=== PATIENT | male | born 1995 | race African-American/Black ===

== ENCOUNTER 2019-05-30 15:26 | Emergency (ER) | payer OTHER ==
[~2019-05-30] VITALS: Ht 172.7 cm; Wt 98.7 kg
--- NOTE | 2019-05-30 16:12 | REP ---
LEFT KNEE, FIVE VIEWS: KNEE: There is no evidence of an acute fracture, dislocation or intrinsic bone disease. IMPRESSION: No fracture or dislocation. Electronically Signed by Joaquín Jaimes MD 05/30/2019 04:57 P
[2019-05-30 16:25] LABS: BASO % 0.8 % (0.0-1.0); EOS # 0.1 10^3/uL (0.0-0.5); EOS % 1.4 % (0.0-3.0); HEMATOCRIT 44.1 % (42.0-52.0); HEMOGLOBIN 14.7 g/dl (13.5-17.5); LYMPH # 2.4 10^3/uL (1.5-5.0); LYMPH % 48.4 % (24.0-44.0); MEAN CORPUSCULAR HEMOGLOBIN 28.2 pg (27.0-33.0); MEAN CORPUSCULAR HGB CONC 33.3 g/dl (32.0-36.5); MEAN CORPUSCULAR VOLUME 84.6 fl (80.0-96.0); MONO # 0.5 10^3/uL (0.0-0.8); MONO % 10.1 % (0.0-5.0); NEUTROPHILS # 1.9 10^3/uL (1.5-8.5); NEUTROPHILS % 39.1 % (36.0-66.0); PLATELET COUNT, AUTOMATED 275 10^3/uL (150-450); RED BLOOD COUNT 5.21 10^6/uL (4.30-6.10); WHITE BLOOD COUNT 4.9 10^3/uL (4.0-10.0)
[2019-05-30 16:45] LABS: ERYTHROCYTE SEDIMENTATION RATE 10 mm/hr (0-15)
[2019-05-30 18:03] VITALS: BP 136/65
== END 2019-05-30 18:16 | disposition home or self-care (01) ==
LOC: M ED 15:26
DX: M25.562 Pain in left knee (principal); F17.210 Nicotine dependence, cigarettes, uncomplicated

== ENCOUNTER 2020-10-07 19:29 | Emergency (ER) | payer OTHER ==
[~2020-10-07] VITALS: Ht 172.7 cm; Wt 110.0 kg
[2020-10-07] MEDS ORDERED: NS 1,000 ML IV ONE (20:00)
[2020-10-07] MEDS ORDERED: ONDANSETRON 4MG/2ML VIAL IV ONE (20:00)
[2020-10-07] MEDS ORDERED: PANTOPRAZOLE 40MG VIAL (C9113 PER 1) IV ONE (20:00)
[2020-10-07] MEDS ORDERED: GI COCKTAIL 50ML BTL(HYOSCYAMINE/MAALOX/LIDOCAINE VISCOUS)(1:3:1) PO ONE (20:00)
[2020-10-07 20:13] LABS: BASO % 0.5 % (0.0-1.0); EOS % 0.5 % (0.0-3.0); HEMATOCRIT 45.4 % (42.0-52.0); HEMOGLOBIN 15.2 g/dl (13.5-17.5); LYMPH # 2.8 10^3/uL (1.5-5.0); LYMPH % 43.1 % (24.0-44.0); MEAN CORPUSCULAR HEMOGLOBIN 28.2 pg (27.0-33.0); MEAN CORPUSCULAR HGB CONC 33.5 g/dl (32.0-36.5); MEAN CORPUSCULAR VOLUME 84.2 fl (80.0-96.0); MONO # 0.6 10^3/uL (0.0-0.8); MONO % 9.1 % (2.0-8.0); NEUTROPHILS % 46.5 % (36.0-66.0); PLATELET COUNT, AUTOMATED 313 10^3/uL (150-450); RED BLOOD COUNT 5.39 10^6/uL (4.30-6.10); WHITE BLOOD COUNT 6.5 10^3/uL (4.0-10.0)
[2020-10-07 20:44] LABS: ALBUMIN 4.3 GM/DL (3.2-5.2); BILIRUBIN,DIRECT 0.2 MG/DL (0.0-0.2); BILIRUBIN,TOTAL 0.6 MG/DL (0.2-1.0); TOTAL PROTEIN 8.7 GM/DL (6.4-8.2)
[2020-10-07] MEDS ORDERED: CARA1TAB6 PO (21:05)
[2020-10-07] MEDS ORDERED: PROTPAK PO (21:05)
[2020-10-07] MEDS ORDERED: ONDA4TAB6 PO (21:05)
[2020-10-07 21:23] VITALS: BP 141/74
== END 2020-10-07 21:42 | disposition home or self-care (01) ==
LOC: M ED 19:29
DX: K21.9 Gastro-esophageal reflux disease without esophagitis (principal); R19.7 Diarrhea, unspecified; R11.0 Nausea; F41.9 Anxiety disorder, unspecified; Z79.899 Other long term (current) drug therapy
CPT/HCPCS: 80047; 80076; 81001; 83605; 83690; 85025; 87040; 96361; 96374; 96375; 99284; C9113; J2405

== ENCOUNTER 2020-12-13 17:12 | Emergency (ER) | payer OTHER ==
[~2020-12-13] VITALS: Ht 172.7 cm; Wt 102.8 kg
[~2020-12-13 17:12] MED LIST: CARA1TAB6 PO; ONDA4TAB6 PO; PROTPAK PO
[2020-12-13] MEDS ORDERED: NAPR-837 PO (20:18)
--- NOTE | 2020-12-13 20:40 | REPVR ---
PROCEDURE INFORMATION: Exam: XR Chest Exam date and time: 12/13/2020 7:59 PM Age: 25 years old Clinical indication: Other: Central chest pain TECHNIQUE: Imaging protocol: XR of the chest. Views: 2 views. COMPARISON: No relevant prior studies available. FINDINGS: Lungs: Unremarkable. No consolidation. Pleural spaces: Unremarkable. No pleural effusion. No pneumothorax. Heart/Mediastinum: Unremarkable. No cardiomegaly. Bones/joints: Unremarkable. IMPRESSION: No acute findings. Electronically signed by: Valdez Mckay On 12/13/2020 20:39:49 PM
[2020-12-13 20:43] VITALS: BP 133/72
--- NOTE | 2020-12-14 13:25 | ECGEPIP ---
[facility] - ED Test Date: 2020-12-13 Pat Name: CUCO LOVE Department: Room: - Gender: Male [employer] Program[employer] Analyst: : 1995 Requested By: Kylee Pereira Order Number: [id number] Reading MD: Kylee Pereira Measurements Intervals [place] Rate: 99 P: 59 OK: 162 QRS: 68 QRSD: 90 T: 63 QT: 328 QTc: 420 Interpretive Statements Normal sinus rhythm No prior Electronically Signed on 12-14-2020 13:24:52 EDT by Kylee Pereira
== END 2020-12-13 20:46 | disposition home or self-care (01) ==
LOC: M ED 17:12
DX: M94.0 Chondrocostal junction syndrome [Tietze] (principal); G47.30 Sleep apnea, unspecified; K21.9 Gastro-esophageal reflux disease without esophagitis; F17.200 Nicotine dependence, unspecified, uncomplicated; Z79.899 Other long term (current) drug therapy

== ENCOUNTER 2021-05-01 11:06 | Emergency (ER) | payer OTHER ==
[~2021-05-01] VITALS: Ht 172.7 cm; Wt 96.9 kg
[~2021-05-01 11:06] MED LIST changes: +NAPR-837 PO
[2021-05-01] MEDS ORDERED: PROPARACAINE 0.5% OPHTH SOL 15ML OS ONE (12:25)
[2021-05-01] MEDS ORDERED: FLUORESCEIN OPHTH 1 MG STRIP OS ONE (12:25)
[2021-05-01 12:54] VITALS: BP 125/67
== END 2021-05-01 12:57 | disposition home or self-care (01) ==
LOC: M ED 11:06
DX: T65.94XA Toxic effect of unspecified substance, undetermined, initial encounter (principal); R73.03 Prediabetes

== ENCOUNTER 2022-08-08 13:55 | Emergency (ER) | payer OTHER ==
[~2022-08-08] VITALS: Ht 172.7 cm; Wt 80.0 kg
[2022-08-08 13:56] VITALS: BP 136/69
[2022-08-08] MEDS ORDERED: PAPATAB3 PO (14:13)
[2022-08-08] MEDS ORDERED: PROT1TAB2 (14:13)
== END 2022-08-08 18:08 | disposition home or self-care (01) ==
LOC: M ED 13:55
DX: S61.310A Laceration without foreign body of right index finger with damage to nail, initial encounter (principal); W27.4XXA Contact with kitchen utensil, initial encounter; K21.9 Gastro-esophageal reflux disease without esophagitis; Z79.1 Long term (current) use of non-steroidal anti-inflammatories (NSAID); Z79.899 Other long term (current) drug therapy

== ENCOUNTER 2022-08-23 23:32 | Emergency (ER) | payer OTHER ==
[~2022-08-23] VITALS: Ht 172.7 cm; Wt 79.1 kg
[~2022-08-23 23:32] MED LIST changes: +PAPATAB3 PO; +PROT1TAB2
[2022-08-24 01:48] LABS: EOS # 0.1 10^3/uL (0.0-0.5); EOS % 1.3 % (0.0-3.0); HEMATOCRIT 44.4 % (42.0-52.0); HEMOGLOBIN 14.9 g/dl (13.5-17.5); LYMPH # 2.4 10^3/uL (1.5-5.0); LYMPH % 60.5 % (24.0-44.0); MEAN CORPUSCULAR HEMOGLOBIN 27.9 pg (27.0-33.0); MEAN CORPUSCULAR HGB CONC 33.6 g/dl (32.0-36.5); MEAN CORPUSCULAR VOLUME 83.1 fl (80.0-96.0); MONO # 0.2 10^3/uL (0.0-0.8); MONO % 4.8 % (2.0-8.0); NEUTROPHILS # 1.3 10^3/uL (1.5-8.5); NEUTROPHILS % 32.4 % (36.0-66.0); PLATELET COUNT, AUTOMATED 229 10^3/uL (150-450); RED BLOOD COUNT 5.34 10^6/uL (4.30-6.10)
[2022-08-24 02:30] LABS: CK-MB VALUE MASS < 1.0 NG/ML (<3.6)
[2022-08-24 02:33] LABS: BLOOD UREA NITROGEN 14 MG/DL (9-23); CALCIUM LEVEL 8.6 MG/DL (8.5-10.1); CARBON DIOXIDE LEVEL 25 MMOL/L (20-31); CHLORIDE LEVEL 106 MMOL/L (98-107); CREATININE FOR GFR 1.01 MG/DL (0.70-1.30); GLOMERULAR FILTRATION RATE > 60.0 (>60); GLUCOSE, FASTING 86 MG/DL (60-100); SODIUM LEVEL 140 MMOL/L (136-145)
[2022-08-24 02:39] LABS: CPK CREATINE PHOSPHOKINASE 190 U/L (46-171); MB/CK RELATIVE INDEX 0.52 (< OR =4)
[2022-08-24 03:15] VITALS: BP 126/73
== END 2022-08-24 05:20 | disposition left against medical advice (07) ==
LOC: M ED 23:32
DX: Z53.21 Procedure and treatment not carried out due to patient leaving prior to being seen by health care provider (principal)

== ENCOUNTER 2022-09-20 19:56 | Emergency (ER) | payer OTHER ==
[~2022-09-20] VITALS: Ht 172.7 cm; Wt 82.7 kg
[2022-09-20 20:49] LABS: BASO % 0.5 % (0.0-1.0); EOS # 0.1 10^3/uL (0.0-0.5); EOS % 1.4 % (0.0-3.0); HEMATOCRIT 39.9 % (42.0-52.0); HEMOGLOBIN 13.3 g/dl (13.5-17.5); LYMPH # 3.7 10^3/uL (1.5-5.0); LYMPH % 63.5 % (24.0-44.0); MEAN CORPUSCULAR HEMOGLOBIN 27.7 pg (27.0-33.0); MEAN CORPUSCULAR HGB CONC 33.3 g/dl (32.0-36.5); MEAN CORPUSCULAR VOLUME 83.1 fl (80.0-96.0); MONO # 0.3 10^3/uL (0.0-0.8); MONO % 4.9 % (2.0-8.0); NEUTROPHILS # 1.7 10^3/uL (1.5-8.5); NEUTROPHILS % 29.5 % (36.0-66.0); PLATELET COUNT, AUTOMATED 251 10^3/uL (150-450); WHITE BLOOD COUNT 5.8 10^3/uL (4.0-10.0)
[2022-09-20 21:21] LABS: LIPASE 32 U/L (12-53)
[2022-09-20 21:23] LABS: ALBUMIN 3.7 G/DL (3.2-5.2); ALKALINE PHOSPHATASE 58 U/L (46-116); ALT/SGPT 19 U/L (7.0-40); AST/SGOT 22 U/L (<34); BILIRUBIN,DIRECT 0.2 MG/DL (<0.4); BILIRUBIN,TOTAL 0.4 MG/DL (0.3-1.2); BLOOD UREA NITROGEN 14 MG/DL (9-23); CALCIUM LEVEL 8.6 MG/DL (8.5-10.1); CARBON DIOXIDE LEVEL 31 MMOL/L (20-31); CHLORIDE LEVEL 102 MMOL/L (98-107); CPK CREATINE PHOSPHOKINASE 137 U/L (46-171); CREATININE FOR GFR 1.05 MG/DL (0.70-1.30); GLOMERULAR FILTRATION RATE > 60.0 (>60); GLUCOSE, FASTING 121 MG/DL (60-100); POTASSIUM SERUM 3.5 MMOL/L (3.5-5.1); SODIUM LEVEL 138 MMOL/L (136-145); TOTAL PROTEIN 7.1 G/DL (5.7-8.2)
[2022-09-20 21:33] LABS: CK-MB VALUE MASS < 1.0 NG/ML (<3.6); MB/CK RELATIVE INDEX 0.72 (< OR =4)
[2022-09-20 22:27] LABS: CK-MB VALUE MASS < 1.0 NG/ML (<3.6)
[2022-09-20 22:31] LABS: CPK CREATINE PHOSPHOKINASE 141 U/L (46-171)
[2022-09-21] MEDS ORDERED: ONDA4TAB6 PO (00:02)
[2022-09-21 02:54] VITALS: BP 125/69
== END 2022-09-21 02:58 | disposition home or self-care (01) ==
LOC: M ED 19:56
DX: R07.9 Chest pain, unspecified (principal); Z79.83 Long term (current) use of bisphosphonates; Z79.899 Other long term (current) drug therapy

== ENCOUNTER → 2022-09-26 | Outpatient (CLI) | payer OTHER | LOC: M PLAIMG 07:29 | PROVIDERS: ATTEND Orthopaedic Surgery | DX: M25.562 Pain in left knee (principal) ==

== ENCOUNTER 2023-02-23 20:34 | Emergency (ER) | payer OTHER ==
[~2023-02-23] VITALS: Ht 172.7 cm; Wt 84.3 kg
[2023-02-23 20:34] VITALS: BP 130/72; TEMP 97.9; O2SAT 99
[~2023-02-23 20:34] MED LIST changes: +ACE65ERTAB PO; +CYCL5TAB PO; +ONDA8TAB8 PO; +SIME180C25 PO
[2023-02-23] MEDS ORDERED: ZOLO25TA PO (20:40)
== END 2023-02-23 22:58 | disposition left against medical advice (07) ==
LOC: M ED 20:34
DX: Z53.21 Procedure and treatment not carried out due to patient leaving prior to being seen by health care provider (principal)